=== PATIENT | female | born 1960 | race Caucasian/White ===

== ENCOUNTER 2022-09-13 09:51 | Day surgery (SDC) | payer OTHER ==
[2022-09-12 13:44] VITALS: BMI 25.1
[2022-09-13 10:08] VITALS: RESP 18
[2022-09-13 11:44] VITALS: TEMP 97.4
[2022-09-13 12:01] VITALS: BP 124/78; PULSE 50
== END 2022-09-13 12:10 | disposition home or self-care (01) ==
LOC: FASU-ENDO 09:51
PROVIDERS: ATTEND Internal Medicine Gastroenterology
PROC: 0DB68ZX Excision of Stomach, Via Natural or Artificial Opening Endoscopic, Diagnostic (ICD-10-PCS; 2022-09-13)
PROC: 0DB58ZX Excision of Esophagus, Via Natural or Artificial Opening Endoscopic, Diagnostic (ICD-10-PCS; 2022-09-13)
PROC: 0DB98ZX Excision of Duodenum, Via Natural or Artificial Opening Endoscopic, Diagnostic (ICD-10-PCS; principal; 2022-09-13 11:24)
DX: K29.50 Unspecified chronic gastritis without bleeding (principal); K21.00 Gastro-esophageal reflux disease with esophagitis, without bleeding; R10.13 Epigastric pain
CPT/HCPCS: 88305-TC; 88342-TC